=== PATIENT | female | born 1965 | race Caucasian/White ===

== ENCOUNTER 2017-01-31 01:29 | Emergency (ER) | payer SELFPAY ==
[~2017-01-31] VITALS: Ht 167.6 cm; Wt 81.6 kg
[~2017-01-31 01:29] MED LIST: ACHD5005 PO; CYCL10TA9 PO; IBP800T PO; MOME15CR17 TP; NAPR-243 PO; PENI500T PO; SULF1TAB35 PO; TRM50T PO
--- OUTSIDE RECORDS SUMMARY | 2017-01-31 01:36 | XMS REPORT ---
Author Author PATRICIA GILLILAND Organization [employer] Address Unknown Phone Unavailable Care Team Providers Care Email Marketing Processor Name Role Phone PATRICIA GILLILAND CP Unavailable Allergies No Known Allergies Problems Problem Type Condition Code Onset Dates Condition Status Problem Spasm of muscle 728.85 Active Assessment Anxiety F41.9 Active Problem Lumbago 724.2 Active Medications Medication Code System Code Instructions Start Date End Date Status Dosage BusPIRone HCl [facility] [address]-19 10 MG Orally Twice a day PRN Aug 16, 2015 1 tablet Results No Known Results Summary Purpose [employer] Submission
--- OUTSIDE RECORDS SUMMARY | 2017-01-31 01:36 | XMS REPORT | Continuity of Care Document ---
Author Author [facility] Address Unknown Phone Unavailable Allergies Active Description Code Type Severity Reaction Onset Reported/Identified Relationship to Patient Clinical Status Yes acetaminophen [id number] Drug Allergy Unknown N/V 01/23/2012 Yes codeine phosphate [id number] Drug Allergy Unknown N/V 01/23/2012 Yes morphine [id number] Drug Allergy Unknown N/V 01/23/2012 Yes morphine Drug Allergy N/A N/A 05/27/2012 Yes Tylenol-Codeine #2 Drug Allergy N/A N/A 05/27/2012 Yes morphine Drug Allergy 05/27/2012 Yes Tylenol-Codeine #2 Drug Allergy 05/27/2012 Medications Problems Date Dx Coded Attending Type Code Diagnosis Diagnosed By 04/20/2011 Ot 724.2 01/23/2012 Ot 724.2 05/27/2012 724.2 BACK PAIN, LOWER 05/27/2012 ARAM LI DO 724.2 BACK PAIN, LOWER 05/27/2012 ARAM LI DO K 724.2 BACK PAIN, LOWER 05/27/2012 LI ISAURA FALCONA K 724.2 BACK PAIN, LOWER 05/27/2012 ILIR ORTIZ APRN 724.2 BACK PAIN, LOWER 03/20/2013 BETH GARCIA Ot 724.2 03/20/2013 BETH GARCIA Ot V57.1 05/28/2013 ARAM LI DO 728.85 MUSCLE SPASM 05/28/2013 ILIR ORTIZ APRN 728.85 MUSCLE SPASM 03/22/2015 ILIR ORTIZ APRN Ot 722.52 Procedures Code [place] [address] [place] SPINE (LUMBAR) W & W/O CONTRAST 03/19/2013 Results Encounters ACCT No. Visit Date/Time Discharge Status Pt. Type Provider Facility Loc./Unit Complaint [id number] 10/16/2013 16:24:00 10/16/2013 23: 59:59 [facility] Outpatient ANGEL ANDRE ILIR R [id number] 05/28/2013 11:42:00 05/28/2013 23: 59:[facility] Outpatient ARAM LI DO [id number] 03/18/2013 14:16:00 03/18/2013 23: 59:[facility] [place] [id number] 05/27/2012 13:24:00 05/27/2012 23: 59:[address] [facility] Outpatient ARAM LI DO [id number] 02/10/2013 14:12:00 Document Registration
[2017-01-31] MEDS ORDERED: IBUP-1780 (01:43)
[2017-01-31] MEDS ORDERED: AMOXICILLIN 500 MG (POLYMOX) CAP PO STA (01:59)
[2017-01-31] MEDS ORDERED: LIDOCAINE 2% VISCOUS 15 ML UDC PO ONE (02:00)
[2017-01-31] MEDS ORDERED: RX-HYDROCODONE/APAP 5/325 MG #4 TAB PK PO PRN (02:00)
[2017-01-31] MEDS ORDERED: HYDR-3812 PO (02:07)
[2017-01-31] MEDS ORDERED: AMOX500C2 PO (02:07)
--- NOTE | 2017-01-31 02:07 | ED EENT ---
History of Present Illness General Chief Complaint: Dental Problems/Pain Stated Complaint: DENTAL PAIN Nursing Triage Note: C/O dental pain times 2 days. Has been taking 800mg Ibuprophen but cont to hurt. Sl swelling noted to left lower jaw. States the tooth is rotten. No local dentist Source: patient Exam Limitations: no limitations History of Present Illness Time seen by provider: 01:52 Initial Comments Here with report of left lower dental pain for the last couple of days. She has been taking her ibuprofen 800 and this has not helped her pain. She knows she has a bad tooth and is trying to get a dental appointment. Denies breathing or swallowing problems or significant swelling within the mouth. Denies fever or chills. Timing/Duration: gradual Severity: moderate Location: dental Prearrival Treatment: over the counter meds, prescription meds Associated Symptoms: No drooling, No facial pain/swelling, tooth pain Allergies and Home Medications Allergies Coded Allergies: acetaminophen (Verified Allergy, N/V, 01/23/12) codeine phos (Verified Allergy, N/V, 01/23/12) morphine (Verified Allergy, N/V, 01/23/12) Home Medications Ibuprofen 800 Mg Tablet, #90 (Reported) Review of Systems Constitutional: see HPI, No chills, No fever Mouth: see HPI, pain, swelling Throat: no symptoms reported Respiratory: no symptoms reported Cardiovascular: no symptoms reported Skin: no symptoms reported Past Npcizoo-Gmdpew-Wqkkah Hx Patient Social History Alcohol Use: Denies Use Recreational Drug Use: No Smoking Status: Current Everyday Smoker Type Used: Cigarettes 2nd Hand Smoke Exposure: No Recent Foreign Travel: No Contact w/Someone Who Travel: No Recent Infectious Disease Expo: No Recent Hopitalizations: No Immunizations Up To Date Tetanus Booster (TDap): Less than 5yrs Seasonal Allergies Seasonal Allergies: No Surgeries HX Surgeries: Yes Surgeries: Section, Tubal Ligation Respiratory Hx Respiratory Disorders: No Cardiovascular Hx Cardiac Disorders: No Neurological Hx Neurological Disorders: No Genitourinary Hx Genitourinary Disorders: No Gastrointestinal Hx Gastrointestinal Disorders: No Musculoskeletal Hx Musculoskeletal Disorders: Yes Musculoskeletal Disorders: Degenerate Disk Disease, Chronic Back Pain Endocrine Hx Endocrine Disorders: No HEENT HX ENT Disorders: No Cancer Hx Cancer: No Psychosocial Hx Psychiatric Problems: No Integumentary HX Skin/Integumentary Disorder: No Blood Transfusions Hx Blood Disorders: No Reviewed Nursing Assessment Reviewed/Agree w Nursing PMH: Yes Physical Exam Vital Signs Vital Sign - Last 12Hours 01/31/17 01:38 Temp 97.9 Pulse 93 Resp 18 B/P (MAP) 140/93 Pulse Ox 99 General Appearance: WD/WN, no apparent distress Eyes: bilateral eye EOMI, bilateral eye PERRL, bilateral eye normal inspection Mouth/Throat: pharynx normal, dental tenderness (near number 17/18.), No pharynx tenderness, No trismus Neck: full range of motion, supple, normal inspection Cardiovascular: regular rate, rhythm, no murmur Respiratory: lungs clear, normal breath sounds Neurologic/Psychiatric: alert, oriented x 3 Skin: normal color, warm/dry Progress/Results/Core Measures Results/Orders My Orders Orders - MARTHA MANCERA MD Amoxicillin Capsule (Polymox Capsule) (01/31/17 01:59) Rx-Hydrocodone/Apap 5-325 Mg (Rx-Vicodin (01/31/17 02:00) Lidocaine 2% Viscous 15 Ml (Xylocaine Vi (01/31/17 02:00) Vital Signs/I&O Vital Sign - Last 12Hours 01/31/17 01:38 Temp 97.9 Pulse 93 Resp 18 B/P (MAP) 140/93 Pulse Ox 99 Blood Pressure Mean: 109 Progress Note : Progress Note Seen and evaluated. Hydrocodone go pack given. Amoxicillin 500 mg by mouth given. Lidocaine jelly on gauze given. Discharged home with return precautions. Patient verbalize understanding instructions and agreement with plan. Departure Impression Impression: Primary Impression: Dental caries Disposition: HOME, SELF-CARE Condition: Stable Departure-Patient Inst. Decision time for Depature: 02:06 Referrals: [facility] (PCP) Primary Care Physician PATRICIA GILLILAND (Family) Primary Care Physician Patient Instructions: Dental Pain (DC), Tooth Abscess (DC) Add. Discharge Instructions: All discharge instructions reviewed with patient and/or family. Voiced understanding. Take medications as directed. You should rinse mouth with warm salt water 2-3 times daily. [place] your teeth. Follow-up with a dentist FENG. Continue ibuprofen as prescribed. Return for worse pain, fever, vomiting, weakness, breathing problems or other concerns as needed. Scripts Hydrocodone/Acetaminophen (Hydrocodon -Acetaminophen 5-325) 1 Each Tablet 1-2 EACH PO Q6H Y for PAIN-MODERATE, #12 TAB 0 Refills Prov: MARTHA MANCERA MD 01/31/17 Amoxicillin (Amoxicillin) 500 Mg Capsule 500 MG PO TID, #30 CAP 0 Refills Prov: MARTHA MANCERA MD 01/31/17 MARTHA MANCERA MD Jan 31, 2017 02:07
[2017-01-31 02:13] VITALS: BP 140/80
== END 2017-01-31 02:14 | disposition home or self-care (01) ==
LOC: EDUNIT# 01:29 → ER 01:32
DX: K02.9 Dental caries, unspecified (principal); F17.210 Nicotine dependence, cigarettes, uncomplicated
CPT/HCPCS: 99283

== ENCOUNTER 2019-09-12 02:41 | Emergency (ER) | payer SELFPAY ==
[~2019-09-12] VITALS: Ht 167 cm; Wt 91.6 kg
[~2019-09-12 02:41] MED LIST changes: +AMOX500C2 PO; +IBUP-1780; -MOME15CR17 TP; +MOME15CR8 TP
--- NOTE | 2019-09-12 03:06 | ED Integumentary General ---
General Chief Complaint: Skin/Wound Problems Stated Complaint: RASH Source: patient Exam Limitations: no limitations History of Present Illness Date Seen by Provider: Sep 12, 2019 Time Seen by Provider: 02:50 Initial Comments Patient presents to ER by private conveyance with her significant other and chief complaint of a rash started up about 3 months ago in June and over the past 2-3 days has progressively gotten worse. She says in June of last year she saw a urgent care and they prescribed her some champagne and antifungal lotions which did not help. She has not gone to see her primary care doctor, Zack Ayon about this however she does see him for back pain and hydrocodone. She's not having any significant weight loss or weight gain. She says she has plaques and excoriation in her scalp as well. She has not had a biopsy done. She has tried Vaseline and several other lotions [id number] but no steroids. She says here in the last 3 days it has had blisters, itchy and painful. She is been using Benadryl with no benefit. Allergies and Home Medications Allergies Coded Allergies: acetaminophen (Verified Allergy, N/V, 01/23/12) codeine phos (Verified Allergy, N/V, 01/23/12) morphine (Verified Allergy, N/V, 01/23/12) Home Medications Amoxicillin 500 Mg Capsule, 500 MG PO TID Prescribed by: MARTHA MANCERA on 01/31/17206 Hydrocodone Bit/Acetaminophen 1 Each Tablet, 1-2 EACH PO Q6H PRN for PAIN- MODERATE Prescribed by: MARTHA MANCERA on 01/31/17206 Patient Home Medication List Home Medication List Reviewed: Yes Review of Systems Review of Systems Constitutional: No chills, No diaphoresis EENTM: No ear discharge, No hearing loss Respiratory: No cough, No short of breath Cardiovascular: No edema, No Hx of Intervention Gastrointestinal: No abdominal pain, No nausea Genitourinary: No discharge, No dysuria Musculoskeletal: No back pain, No joint pain Skin: see HPI Past Wjlxsol-Batxcc-Uwuzmx Hx Patient Social History Recreational Drug Use: No Smoking Status: Current Everyday Smoker Type Used: Cigarettes 2nd Hand Smoke Exposure: No Recent Foreign Travel: No Contact w/Someone Who Travel: No Recent Hopitalizations: No Immunizations Up To Date Tetanus Booster (TDap): Less than 5yrs Seasonal Allergies Seasonal Allergies: No Past Medical History Surgeries: Yes Section, Tubal Ligation Respiratory: No Cardiac: No Neurological: No Gastrointestinal: No Musculoskeletal: Yes Degenerate Disk Disease, Chronic Back Pain Endocrine: No Cancer: No Psychosocial: No Integumentary: No Blood Disorders: No Physical Exam Vital Signs Capillary Refill : General Appearance: WD/WN, no apparent distress HEENT: PERRL/EOMI, pharynx normal Neck: non-tender, full range of motion Cardiovascular: normal peripheral pulses, regular rate, rhythm Respiratory: no respiratory distress, no accessory muscle use Progress/Results/Core Measures Progress Progress Note : Time: 03:03 Progress Note We'll trial steroids. It seems to be limited to the sun exposed skin to her neck and upper trunk as well as in her hairline on the scalp but not her face. We have strongly encouraged her to follow-up with her primary care doctor at her scheduled appointment on 16 September and discuss obtaining a biopsy. Autoimmune, inflammatory, malignancy? Departure Impression Primary Impression: Rash and nonspecific skin eruption Disposition: HOME, SELF-CARE Condition: Stable Departure-Patient Inst. Decision time for Depature: 03:04 Referrals: [facility] (PCP) Primary Care Physician PATRICIA AYON (Family) Primary Care Physician Patient Instructions: Skin Rash (DC), Topical Corticosteroid Medicines Add. Discharge Instructions: Wipe a pea sized amount of steroid cream over the affected skin of your neck twice a day for the next week. Keep your follow-up appointment with primary care and consider obtaining biopsy of the skin. Discuss whether referral to dermatology would be reasonable. Zyrtec or Claritin for itching. Tylenol or ibuprofen as necessary for pain. Wear a wide brim hat when out exposed to sun. All discharge instructions reviewed with patient and/or family. Voiced understanding. Scripts Triamcinolone Acet (Triamcinolone Acetonide 0.1% Ointment) 15 Gm Oint 1 GM TP BID for 7 Days, #1 TUBE 0 Refills Prov: JEANIE SANCHEZ 09/12/19 JAENIE SANCHEZ Sep 12, 2019 03:06
[2019-09-12] MEDS ORDERED: TR1O15 TP (03:07)
[2019-09-12 03:39] VITALS: BP 136/76
== END 2019-09-12 03:40 | disposition home or self-care (01) ==
LOC: EDUNIT# 02:41 → ER 02:45
DX: R21 Rash and other nonspecific skin eruption (principal); F17.210 Nicotine dependence, cigarettes, uncomplicated; Z88.6 Allergy status to analgesic agent; Z88.5 Allergy status to narcotic agent
CPT/HCPCS: 99282